=== PATIENT | female | born 1985 | race Caucasian/White ===

== ENCOUNTER 2017-03-17 12:31 | Emergency (ER) | payer OTHER ==
[~2017-03-17] VITALS: Ht 157.5 cm; Wt 72.6 kg
[~2017-03-17 12:31] MED LIST: Crutch1 EACH MISC; EXPECTA PRENAT1 EACH PO; Hydrocodone-Ap1 EA23 PO; IBUP800 PO; LORA2 PO; MEDR150I IM; OXYACE5T PO; PROM25 PO; Percocet 5-3251 EACH PO; Ultram50 MG PO; Vistaril50 MG PO; [UNRECOGNIZED DRUG - REMARK]
== END 2017-03-17 13:06 | disposition home or self-care (01) ==
LOC: ER 12:31
DX: J06.9 Acute upper respiratory infection, unspecified (principal); F32.9 Major depressive disorder, single episode, unspecified; F17.200 Nicotine dependence, unspecified, uncomplicated
CPT/HCPCS: 99282

== ENCOUNTER 2017-04-08 10:56 | Emergency (ER) | payer OTHER ==
[~2017-04-08] VITALS: Ht 157.5 cm; Wt 70.3 kg
== END 2017-04-08 11:32 | disposition home or self-care (01) ==
LOC: ER 10:56
DX: S01.81XA Laceration without foreign body of other part of head, initial encounter (principal); Z88.8 Allergy status to other drugs, medicaments and biological substances; F32.9 Major depressive disorder, single episode, unspecified; F31.9 Bipolar disorder, unspecified; F17.210 Nicotine dependence, cigarettes, uncomplicated; W22.8XXA Striking against or struck by other objects, initial encounter
CPT/HCPCS: 12011; 90471; 90714; 99283

== ENCOUNTER → 2017-05-18 | Outpatient (CLI) | payer OTHER | LOC: LAB EV 17:03 → LAB SHORT 17:03 | DX: N39.0 Urinary tract infection, site not specified (principal) | CPT/HCPCS: 87077; 87086; 87186 ==

== ENCOUNTER 2018-02-20 12:05 | Observation (INO) | payer OTHER ==
[~2018-02-20] VITALS: Ht 157.5 cm; Wt 56.7 kg
[2018-02-20 12:36] LABS: BASOPHILS ABSOLUTE AUTO 0.06 K/mm3 (0.00-0.23); BASOPHILS PERCENT AUTO 1 % (0-2); EOSINOPHILS ABSOLUTE AUTO 0.31 K/mm3 (0.00-0.68); EOSINOPHILS PERCENT AUTO 3 % (0-6); Hematocrit 38.5 % (33.0-51.0); Hemoglobin 13.1 g/dL (11.5-16.0); IMMATURE GRAN ABSOLUTE AUTO 0.03 K/mm3 (0.00-0.10); IMMATURE GRAN PERCENT AUTO 0 % (0-1); LYMPHOCYTES ABSOLUTE AUTO 3.08 K/mm3 (0.84-5.20); LYMPHOCYTES PERCENT AUTO 28 % (21-46); MONOCYTES ABSOLUTE AUTO 0.71 K/mm3 (0.16-1.47); MONOCYTES PERCENT AUTO 6 % (4-13); Mean Corpuscular HGB 31.3 pg (26.0-34.0); Mean Corpuscular Volume 92 fL (80-100); Mean Platelet Volume 9.6 fL (9.1-12.4); NEUTROPHILS ABSOLUTE AUTO 6.93 K/mm3 (1.96-9.15); NEUTROPHILS PERCENT AUTO 62 % (41-73); Platelet Count 387 K/mm3 (150-400); RDW Coefficient Variation 12.9 % (11.7-14.2); RDW Standard Deviation 43.5 fL (35.1-46.3); Red Blood Cell Count 4.18 M/mm3 (3.80-5.20); White Blood Cell Count 11.12 K/mm3 (4.00-11.30)
[2018-02-20 12:59] LABS: Alanine Aminotransfer (ALT/SGP 40 U/L (12-78); Albumin, Blood 3.5 g/dL (3.4-5.0); Albumin/Globulin Ratio 1.1 (0.8-1.8); Alk Phos 131 U/L (50-136); Anion Gap 8 mmol/L (6-16); Aspartate Aminotrans (AST/SGOT 29 U/L (12-37); Bilirubin, Total 0.9 mg/dL (0.1-1.0); Blood Urea Nitrogen 11 mg/dL (8-24); Bun/Creatinine Ratio 14.8 (12.0-20.0); CO2, Blood 24 mmol/L (21-32); Calcium, Blood 8.9 mg/dL (8.5-10.1); Chloride, Blood 108 mmol/L (98-108); Creatinine, Blood 0.74 mg/dL (0.40-1.00); Globulin, Blood 3.3 g/dL (2.2-4.0); Glomerular Filtration Rate >60 (60-); Glucose, Blood 93 mg/dL (70-99); Potassium, Blood 3.9 mmol/L (3.5-5.5); Sodium, Blood 140 mmol/L (136-145); Total Protein, Blood 6.8 g/dL (6.4-8.2)
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
--- NOTE | 2018-02-20 17:11 | NUR ---
dr jeffery called ok for cl diet npo after mn will come to see pt
--- NOTE | 2018-02-20 17:35 | NUR ---
PT OUT TO SMOKE DR CRANE BY TO SEE PT PT HAD SOME CL
--- NOTE | 2018-02-20 18:08 | NUR ---
pt back to room still no nausea or pain after cl pt req more broth and popsicle talked with her about missing dr jeffery he will try and see her again after his surg
[2018-02-21 00:26] LABS: Source, Urine Voided
[2018-02-21 00:33] LABS: Bilirubin, Urine Neg (Neg); Blood, Urine Neg (Neg); Glucose Qualitative, Urine Neg (Neg); Ketones, Urine Neg (Neg); Leukocyte Esterase, Urine 1+ (Neg); Nitrite, Urine Neg (Neg); Protein, Urine Neg (Neg); Urobilinogen, Urine NORM (Normal)
[2018-02-21 00:38] LABS: Appearance, Urine Clear (Clear); Color, Urine Yellow (P-Yellow); Red Blood Cells, Urine 0-2 /hpf (0-2); Squamous Epithelial Cells Rare /hpf (Few)
[2018-02-21 00:39] LABS: Bacteria Few /hpf
--- NOTE | 2018-02-21 04:05 | NUR ---
PT RAN OUT IN TO [place] [facility] CONFUSED PULLING IV LINE TIGHT SOAKER HELPER STOPPED PT AND RN DISCONECTED IV. PT RETURNED TO ROOM LAYING ON BENCH IN ROOM.
--- NOTE | 2018-02-21 04:07 | NUR ---
PT FOUND SITTING ON FLLOR ON BLANKET CRYING. PT WONT TALK TO STAFF JUST COVERS HER HEAD WITH BLANKET.
--- NOTE | 2018-02-21 05:04 | NUR ---
SUMMARY PT HAVING EMOTIONAL EPISODES THIS AM.TEARFUL AT TIMES.WAS STANDING IN DOORWAY OF ROOM WITH IV TUBING STRETCHED TIGHT.IRRITABLE WHEN ADDRESSED BY STAFF. SL IV TO PREVENT FROM PULLING IV OUT.LATER, PT SAT SELF ON FLOOR WITH BLANKET CRYING AND WANTED TO LAY DOWN ON FLOOR TO SLEEP.PT APPEARING GROGGY,REDIRECTED TO PTS BED. WITH ATTEMPTS TO CONSOLE, PT COVERS HEAD WITH BLANKET.LATER WHEN ASKED ABOUT EPISODES, PT REPORTS MAYBE WAKING FROM BAD DREAMS, BUT UNSURE. PT REPORTS FEELING SAFE WHILE IN HOSPITAL AND IN HOME ENVIRONMENT.URINE SENT TONIGHT PER ER ORDER. U PREG NEG/ U/A + CULTURE BEING RAN.
--- NOTE | 2018-02-21 07:50 | NUR ---
pt sleeping wakes to verbal and physical stimuli pt startles dr jeffery to see pt pt reportin mild ruq abd pain no nausea at this time pt sleepy falls back to sleep
--- NOTE | 2018-02-21 09:00 | NUR ---
pt sleeping pt's grandma at bedside
--- NOTE | 2018-02-21 10:55 | NUR ---
pt transported via bed to or
[2018-02-21] MEDS ORDERED: HYDR1TAB94 PO (13:01)
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
--- NOTE | 2018-02-21 16:08 | NUR ---
DISCHARGE INSTRUCTIONS REVIEWED WITH PT VERBALIZED RX GIVEN EARLIER TO PT'S CHRISTEN TO FILL EARLIER AFTER PT WENTOUT TO SMOKE SHE REPORTED PAIN 09/18 DILAUDID 1 MG IVP GIVEN
--- NOTE | 2018-02-21 16:45 | NUR ---
iv removed wc escort to car no acute changes pt had small amt sang drainag to umbillicus instructed pt to remove gauze in am
== END 2018-02-21 16:35 | disposition home or self-care (01) ==
LOC: ER 12:05 → SURS 12:06
PROVIDERS: Emergency Medicine; ADMIT Surgery
PROC: 0FT44ZZ Resection of Gallbladder, Percutaneous Endoscopic Approach (ICD-10-PCS; principal; 2018-02-21 10:30)
DX: K80.00 Calculus of gallbladder with acute cholecystitis without obstruction (principal); Z88.8 Allergy status to other drugs, medicaments and biological substances
CPT/HCPCS: 76705; 76857; 80053; 81001; 81025; 83690; 85025; 87086; 88304; 96361; 96365; 96375; 96376; 99285-25; C1729; G0378; J0295; J1170; J2250; J2405; J3010; J7030; J7120

== ENCOUNTER 2018-08-11 08:43 | Emergency (ER) | payer OTHER ==
[~2018-08-11] VITALS: Ht 157.5 cm; Wt 52.2 kg
[~2018-08-11 08:43] MED LIST changes: +HYDR1TAB94 PO
[2018-08-11 09:54] LABS: BASOPHILS ABSOLUTE AUTO 0.09 K/mm3 (0.00-0.23); BASOPHILS PERCENT AUTO 1 % (0-2); EOSINOPHILS ABSOLUTE AUTO 0.26 K/mm3 (0.00-0.68); EOSINOPHILS PERCENT AUTO 3 % (0-6); Hematocrit 42.7 % (33.0-51.0); Hemoglobin 14.3 g/dL (11.5-16.0); IMMATURE GRAN ABSOLUTE AUTO 0.01 K/mm3 (0.00-0.10); IMMATURE GRAN PERCENT AUTO 0 % (0-1); LYMPHOCYTES ABSOLUTE AUTO 2.65 K/mm3 (0.84-5.20); LYMPHOCYTES PERCENT AUTO 35 % (21-46); MONOCYTES ABSOLUTE AUTO 0.51 K/mm3 (0.16-1.47); MONOCYTES PERCENT AUTO 7 % (4-13); Mean Corpuscular HGB 30.9 pg (26.0-34.0); Mean Corpuscular HGB Conc 33.5 g/dL (31.5-36.5); Mean Corpuscular Volume 92 fL (80-100); Mean Platelet Volume 9.6 fL (9.1-12.4); NEUTROPHILS ABSOLUTE AUTO 4.17 K/mm3 (1.96-9.15); NEUTROPHILS PERCENT AUTO 54 % (41-73); Platelet Count 362 K/mm3 (150-400); RDW Coefficient Variation 12.2 % (11.7-14.2); RDW Standard Deviation 41.4 fL (35.1-46.3); Red Blood Cell Count 4.63 M/mm3 (3.80-5.20); White Blood Cell Count 7.69 K/mm3 (4.00-11.30)
[2018-08-11 10:08] LABS: Source, Urine Clean Catch
[2018-08-11 10:24] LABS: Bilirubin, Urine Neg (Neg); Blood, Urine 5+ (Neg); Glucose Qualitative, Urine Neg (Neg); Ketones, Urine 1+ (Neg); Leukocyte Esterase, Urine 1+ (Neg); Nitrite, Urine Neg (Neg); Protein, Urine 2+ (Neg); Urobilinogen, Urine NORM (Normal); pH, Urine 6.5 (5.0-8.0)
[2018-08-11 10:30] LABS: Appearance, Urine Hazy (Clear); Color, Urine Yellow (P-Yellow)
[2018-08-11 10:33] LABS: Bacteria Mod /hpf; Mucus Heavy ({null, 0-Heavy}); Squamous Epithelial Cells Mod /hpf (Few)
[2018-08-11 10:34] LABS: Hyaline Casts 0-2 /lpf (0-2)
[2018-08-11 10:39] LABS: Alanine Aminotransfer (ALT/SGP 23 U/L (12-78); Albumin, Blood 3.9 g/dL (3.4-5.0); Albumin/Globulin Ratio 1.1 (0.8-1.8); Alk Phos 127 U/L (50-136); Anion Gap 7 mmol/L (6-16); Aspartate Aminotrans (AST/SGOT 13 U/L (12-37); Beta HCG, Quantitative, Serum <1 mIU/mL (0-3); Bilirubin, Total 0.6 mg/dL (0.1-1.0); Blood Urea Nitrogen 6 mg/dL (8-24); Bun/Creatinine Ratio 7.8 (12.0-20.0); CO2, Blood 26 mmol/L (21-32); Calcium, Blood 8.6 mg/dL (8.5-10.1); Chloride, Blood 107 mmol/L (98-108); Creatinine, Blood 0.77 mg/dL (0.40-1.00); Globulin, Blood 3.6 g/dL (2.2-4.0); Glomerular Filtration Rate >60 (60-); Glucose, Blood 86 mg/dL (70-99); Potassium, Blood 3.8 mmol/L (3.5-5.5); Sodium, Blood 140 mmol/L (136-145); Total Protein, Blood 7.5 g/dL (6.4-8.2)
== END 2018-08-11 11:10 | disposition home or self-care (01) ==
LOC: ER 08:43
PROVIDERS: Emergency Medicine
DX: S80.02XA Contusion of left knee, initial encounter (principal); S80.01XA Contusion of right knee, initial encounter; N93.9 Abnormal uterine and vaginal bleeding, unspecified; W22.8XXA Striking against or struck by other objects, initial encounter; F31.9 Bipolar disorder, unspecified; Z88.8 Allergy status to other drugs, medicaments and biological substances; F17.200 Nicotine dependence, unspecified, uncomplicated
CPT/HCPCS: 36415; 73562-RT; 80053; 81001; 81025; 84702; 85025; 87086; 99283-25

== ENCOUNTER → 2018-09-28 | Outpatient (CLI) | payer OTHER ==
[2018-10-01 03:07] LABS: CHLAMYDIA TRACHOMATIS, NAA Negative (Negative); HPV 16 Negative (Negative); HPV 18 Negative (Negative); HPV OTHER HR TYPES Positive (Negative); NEISSERIA GONORRHOEAE, NAA Negative (Negative)
== END ==
LOC: LAB 15:27 → LAB SHORT 15:27
PROVIDERS: Obstetrics & Gynecology
DX: Z01.419 Encounter for gynecological examination (general) (routine) without abnormal findings (principal); Z11.3 Encounter for screening for infections with a predominantly sexual mode of transmission
CPT/HCPCS: 87491; 87591; 87624; 87625; G0123

== ENCOUNTER 2019-01-29 04:32 | Emergency (ER) | payer OTHER ==
[~2019-01-29] VITALS: Ht 157.5 cm; Wt 63.5 kg
== END 2019-01-29 06:27 | disposition home or self-care (01) ==
LOC: ER 04:32
DX: J02.9 Acute pharyngitis, unspecified (principal); F17.210 Nicotine dependence, cigarettes, uncomplicated; Z88.8 Allergy status to other drugs, medicaments and biological substances
CPT/HCPCS: 87081; 87430; 99283; J1100

== ENCOUNTER → 2021-12-05 | Outpatient (CLI) | payer OTHER ==
[2021-12-06 18:10] LABS: HPV 16 Negative (Negative); HPV 18 Negative (Negative); HPV OTHER HR TYPES Negative (Negative)
== END | disposition home or self-care (01) ==
LOC: LAB 11:15 → LAB SHORT 11:15
PROVIDERS: Family Medicine
DX: Z01.419 Encounter for gynecological examination (general) (routine) without abnormal findings (principal)
CPT/HCPCS: 87624; G0123

== ENCOUNTER → 2023-05-29 | Outpatient (CLI) | payer OTHER ==
[2023-05-29 10:35] LABS: BASOPHILS ABSOLUTE AUTO 0.06 K/mm3 (0.00-0.23); BASOPHILS PERCENT AUTO 1 % (0-2); EOSINOPHILS ABSOLUTE AUTO 0.09 K/mm3 (0.00-0.68); EOSINOPHILS PERCENT AUTO 1 % (0-6); Hematocrit 40.6 % (33.0-51.0); Hemoglobin 13.8 g/dL (11.5-16.0); IMMATURE GRAN ABSOLUTE AUTO 0.01 K/mm3 (0.00-0.10); IMMATURE GRAN PERCENT AUTO 0 % (0-1); LYMPHOCYTES ABSOLUTE AUTO 1.43 K/mm3 (0.84-5.20); LYMPHOCYTES PERCENT AUTO 23 % (21-46); MONOCYTES ABSOLUTE AUTO 0.48 K/mm3 (0.16-1.47); MONOCYTES PERCENT AUTO 8 % (4-13); Mean Corpuscular HGB 30.8 pg (26.0-34.0); Mean Corpuscular Volume 91 fL (80-100); Mean Platelet Volume 9.9 fL (9.1-12.4); NEUTROPHILS ABSOLUTE AUTO 4.27 K/mm3 (1.96-9.15); NEUTROPHILS PERCENT AUTO 67 % (41-73); Platelet Count 303 K/mm3 (150-400); RDW Coefficient Variation 12.1 % (11.7-14.2); RDW Standard Deviation 39.9 fL (35.1-46.3); Red Blood Cell Count 4.48 M/mm3 (3.80-5.20); White Blood Cell Count 6.34 K/mm3 (4.00-11.30)
[2023-05-29 10:44] LABS: Albumin, Blood 4.1 g/dL (3.4-5.0); Albumin/Globulin Ratio 1.1 (0.8-1.8); Bilirubin, Total 0.5 mg/dL (0.1-1.0); Bun/Creatinine Ratio 13.2 (12.0-20.0); Calcium, Blood 8.6 mg/dL (8.5-10.1); Creatinine, Blood 0.91 mg/dL (0.40-1.00); Globulin, Blood 3.7 g/dL (2.2-4.0); Potassium, Blood 3.9 mmol/L (3.5-5.5); Total Protein, Blood 7.8 g/dL (6.4-8.2)
== END | disposition home or self-care (01) ==
LOC: LAB 10:29 → LAB SHORT 10:29
PROVIDERS: Physician Assistant
DX: R10.31 Right lower quadrant pain (principal)
CPT/HCPCS: 80053; 85025

== ENCOUNTER → 2023-06-03 | Outpatient (CLI) | payer OTHER | END | disposition home or self-care (01) | LOC: LAB SHORT 17:48 → LAB 17:48 | DX: J02.9 Acute pharyngitis, unspecified (principal) ==

== ENCOUNTER → 2023-10-09 | Outpatient (CLI) | payer OTHER ==
[2023-10-19 07:55] LABS: HPV HIGH RISK BY TMA Not Detected; HPV SOURCE Cervical
== END ==
LOC: LAB 12:56 → LAB SHORT 12:56
PROVIDERS: Advanced Practice Midwife
DX: Z01.419 Encounter for gynecological examination (general) (routine) without abnormal findings (principal)
CPT/HCPCS: 87624; G0123

== ENCOUNTER 2024-08-12 14:29 | Emergency (ER) | payer OTHER ==
[~2024-08-12] VITALS: Ht 157.5 cm; Wt 59.0 kg
[2024-08-12 14:40] VITALS: BP 114/93
== END 2024-08-12 17:44 | disposition home or self-care (01) ==
LOC: ER 14:29
DX: R07.2 Precordial pain (principal); F17.290 Nicotine dependence, other tobacco product, uncomplicated
CPT/HCPCS: 71046; 93005; 93010; 99284-25